=== PATIENT | male | born 1995 | race Two or more races ===

== ENCOUNTER 2024-07-29 17:58 | Emergency (ER) | payer OTHER ==
[~2024-07-29] VITALS: Ht 172.7 cm; Wt 95.4 kg
[2024-07-29 18:03] VITALS: TEMP 98.2
[2024-07-29 18:30] VITALS: BP 152/103; PULSE 97; RESP 16; O2SAT 98
--- NOTE | 2024-07-29 18:31 | Physician Documentation ---
History of Present Illness ~ Chief Complaint: Hypertension Stated Complaint: HTN Time Seen by MD: 18:27 HPI Patient is seen today for med clearance for hypertension as patient is brought here by ambulance from a nearby psych facility. Patient denies any current chest pain or shortness of breath or abdominal pain nausea, vomiting, diarrhea. Patient has no new or other concerns or complaints at this time. Medication Reconciliation Allergies: Coded Allergies: No Known Allergies (Unverified , 07/29/24) Review of Systems Constitutional: Denies: chills, fever, weakness Eyes: Denies: pain, blurred vision ENT: Denies: ear pain, nose pain, throat pain, mouth pain Respiratory: Denies: cough, shortness of breath Cardiovascular: Denies: chest pain, palpitations Gastrointestinal: Denies: abdominal pain, nausea, vomiting Genitourinary: Denies: burning, dysuria Male Genitalia: Denies: penile discharge, testicular pain Neurological: Denies: headache, dizziness Musculoskeletal: Denies: pain, swelling Integumentary: Denies: rash, lesions Allergic/Immunologic: Denies: hives, itching Hematologic/Lymphatic: Denies: no symptoms reported Psychiatric: Denies: depression, anxiety Physical Exam Vital Signs: Temperature: 98.2, Heart Rate: 98, Respiratory Rate: 19, BP: 165/105, Pulse Oximetry: 98, Weight: 95.400 Physical Exam General: Awake and Alert, no acute distress. HEENT: Conjunctiva pink, Sclera clear, Mucus Membranes moist. Neck: Supple without masses and tenderness. Resp: Unlabored. Lungs clear to auscultation bilaterally. Heart: Regular Rate and rhythm, normal S1 and S2 without murmur, rub or gallop. Abdomen: Soft and non tender no organomegaly Extremities: No cyanosis,clubbing or edema. Skin: Warm and Dry. Progress Results/Orders Results/Orders Orders - KIMBERLY DALY PAC Chest,Two Views (07/29/24 18:30) Completed Orders - KIMBERLY DLAY PAC Cbc/Diff (07/29/24 18:30) Chest,Two Views (07/29/24 18:30) Electrocardiogram (07/29/24 18:30) BMP (07/29/24 18:30) Clonidine Tablet (Catapres Tablet) (07/29/24 18:30) Ua W/Microscopic, Cult If Ind (07/29/24 18:46) Clonidine Tablet (Catapres Tablet) (07/29/24 19:33) Medications Received in ER Medications (Trade) Dose Ordered Sig/Claudio Route PRN Reason Start Time Stop Time Status Last Admin Dose Admin (Catapres tablet) 0.1 mg ONCE STAT PO 07/29/24 18:30 07/29/24 18:32 DC 07/29/24 18:49 0.1 MG Vital Signs 07/29/24 07/29/24 07/29/24 07/29/24 18:03 18:12 18:30 18:30 Temp 98.2 Pulse 98 98 97 Resp 19 16 B/P (MAP) 164/97 165/105 (125) 152/103 (119) Pulse Ox 98 98 O2 Flow Rate 0 Laboratory Tests Test 07/29/24 18:46 07/29/24 18:54 Urine Specimen Description Cln catch midstream Urine Color Yellow Urine Clarity Clear Urine pH 6.0 Urine Specific [place] 1.025 Urine Protein 30 H Urine Glucose (UA) Negative Urine Ketones 15 H Urine Occult Blood Negative Urine Nitrite Negative Urine Bilirubin Small Urine Urobilinogen 0.2 Urine Leukocyte Esterase Negative Urine RBC None seen Urine WBC 0-4 Urine Squamous Epithelial Cells Few Urine Bacteria 1+ Urine Mucus Moderate Urine Culture Indicated Not ind Volume Urine Centrifuged 10 ml Urine Comment White Blood Count 7.3 Red Blood Count 5.47 Hemoglobin 17.0 Hematocrit 49.2 Mean Corpuscular Volume 90.0 Mean Corpuscular Hemoglobin 31.0 Mean Corpuscular Hemoglobin Concent 34.5 Red Cell Distribution Width 13.3 Platelet Count 261 Mean Platelet Volume 8.0 Neutrophils (%) (Auto) 65.2 Lymphocytes (%) (Auto) 20.5 L Monocytes (%) (Auto) 11.7 Eosinophils (%) (Auto) 2.1 Basophils (%) (Auto) 0.5 Neutrophils # (Auto) 4.8 Lymphocytes # (Auto) 1.5 Monocytes # (Auto) 0.9 Eosinophils # (Auto) 0.2 Basophils # (Auto) 0.0 CBC Comment Sodium Level 143 Potassium Level 4.0 Chloride Level 104 Carbon Dioxide Level 26.4 Anion Gap 13 Blood Urea Nitrogen 22 H Creatinine 0.97 Estimated GFR/1.73 m2 > 90 BUN/Creatinine Ratio 22.7 H Glucose Level 102 Calcium Level 9.4 Albumin 4.5 Chemistry Comments EKG/XRAY/CT/US/VASC/MRI EKG : Additional Comment EKG interpreted by myself today shows normal sinus rhythm, normal rate at 96 beats per minute, no sign of ST segment elevation or ischemia, no axis deviation. Chest X-Ray : Additional Comments Chest x-ray interpreted by myself today shows no sign of large effusion, no large infiltrate, normal mediastinum. DIAGNOSTIC RADIOLOGY Patient: ROBB PINEDA Medical Record: [id number] [facility] : 1995, Age: 28 Sex: Male Location: ER Patient Status: [facility] ER Service Date/Time: 07/29/241829 Ordering Physician: KIMBERLY DALY PAC Exam: CHEST,TWO VIEWS Clinical History CHEST PAIN Comparison None Without Contrast ROBB PINEDA, [id number] Technique: Frontal and lateral chest x-ray Findings: The lungs are unremarkable. No pleural abnormality. The cardiomediastinal silhouette is unremarkable for an AP view. No acute osseous abnormality. The imaged part of the upper abdomen is unremarkable. Impression: No evidence of acute cardiopulmonary disease This report was electronically signed by Ashley Marshall MD on 07/29/2024 6:58:59 PM. Electronically Signed by:ASHLEY MARSHALL MD Date & Time: 07/29/241901 Dictated by: ASHLEY MARSHALL MD Dictation date and time: 07/29/241901 Primary Care Provider: NO PRIMARY CARE PROVIDER cc: KIMBERLY DALY PAC ~ Medical Decision Making Findings Patient is seen today for med clearance for hypertension as patient is brought here by ambulance from a nearby psych facility. Patient denies any current chest pain or shortness of breath or abdominal pain nausea, vomiting, diarrhea. Patient has no new or other concerns or complaints at this time. Patient's labs and EKG and chest x-ray are all unremarkable. Patient is medically cleared to enter psych facility [facility]. Patient will return to ED with any worsening, concerning or changing symptoms. Patient was administered clonidine 0.1 mg tablets x2 and patient's blood pressure did improve over his state to a more reasonable level. Departure Disposition: [facility] Impression: Primary Impression: Benign hypertension Condition: Improved Discharge Instructions: Hypertension, Adult Additional Instructions: Patient's labs and EKG and chest x-ray are all unremarkable. Patient is medically cleared to enter psych facility [facility]. Patient will return to ED with any worsening, concerning or changing symptoms. Patient was administered clonidine 0.1 mg tablets x2 and patient's blood pressure did improve over his state to a more reasonable level. Referrals: NO PRIMARY CARE PROVIDER (PCP) Signature Scribe Signature: No scribe Attestation: No scribe KIMBERLY DALY PAC July 29, 2024 18:31
[2024-07-29] MEDS: cloNIDine 0.1 mg tablet PO STA ×2 (18:49→19:46)
--- NOTE | 2024-07-29 18:50 | ELECTROCARDIOGRAPH REPORT ---
[facility] Test Date: 2024-07-29 Test Time: 18:47:31 Pat Name: ROBB PINEDA Department: EMERGENCY ROOM Room: Gender: M [employer]: : 1995 Requested By: KIMBERLY DALY Order Number: [id number] Reading MD: Measurements Intervals [place] Rate: 96 P: 76 AL: 126 QRS: 76 QRSD: 92 T: 39 QT: 348 QTc: 440 Interpretive Statements Sinus rhythm Baseline wander in lead(s) V1 Please click the below link to view image of tracing.
[2024-07-29 19:02] LABS: BILIRUBIN,URINE SMALL (Neg); CLARITY,URINE CLEAR (Clear); COLOR,URINE YELLOW (Yellow); GLUCOSE, URINE NEGATIVE (Neg); KETONES,URINE 15 mg/dl (Neg); LEUKOCYTE ESTERASE ,URINE NEGATIVE (Neg); NITRITES, URINE NEGATIVE (Neg); OCCULT BLOOD,URINE NEGATIVE (Neg); PROTEIN,URINE 30 mg/dl (Neg); UROBILINOGEN,URINE 0.2 E.U/dL (0.2-1.0)
--- NOTE | 2024-07-29 19:02 | RADIOLOGY REPORT ---
Clinical History CHEST PAIN Comparison None Without Contrast ROBB PINEDA, [id number] Technique: Frontal and lateral chest x-ray Findings: The lungs are unremarkable. No pleural abnormality. The cardiomediastinal silhouette is unremarkable for an AP view. No acute osseous abnormality. The imaged part of the upper abdomen is unremarkable. Impression: No evidence of acute cardiopulmonary disease This report was electronically signed by Ashley Benson MD on 07/29/2024 6:58:59 PM.
[2024-07-29 19:06] LABS: UA COLLECTION TYPE CLN CATCH MIDSTREAM
[2024-07-29 19:11] LABS: BASOPHILS % (AUTO) 0.5 % (0-1); EOSINOPHILS # (AUTO) 0.2 X10'3 (0-0.9); EOSINOPHILS % (AUTO) 2.1 % (0-6); HEMATOCRIT 49.2 % (42.0-52.0); LYMPHOCYTES # (AUTO) 1.5 X10'3 (1.1-4.8); LYMPHOCYTES % (AUTO) 20.5 % (21-51); MEAN CORPUSCULAR HGB CONC 34.5 g/dL (33.0-36.5); MONOCYTES # (AUTO) 0.9 X10'3 (0-0.9); MONOCYTES % (AUTO) 11.7 % (2-12); NEUTROPHILS # (AUTO) 4.8 X10'3 (1.8-7.7); NEUTROPHILS % (AUTO) 65.2 % (42-75); PLATELET COUNT 261 X10'3 (140-440); RED BLOOD COUNT 5.47 X10'6 (4.70-6.10); RED CELL DISTRIBUTION WIDTH 13.3 % (11.5-14.5); WHITE BLOOD COUNT 7.3 X10'3 (4.5-11.0)
[2024-07-29 19:14] LABS: ALBUMIN 4.5 G/DL (3.4-5.0); ANION GAP 13 (8-16); BLOOD UREA NITROGEN 22 MG/DL (7-18); BUN/CREATININE RATIO 22.7 (10.0-20.0); CALCIUM 9.4 MG/DL (8.5-10.1); CHLORIDE 104 MMOL/L (99-107); CREATININE 0.97 MG/DL (0.60-1.10); GLUCOSE 102 MG/DL (70-104); SODIUM 143 MMOL/L (135-145); TOTAL CARBON DIOXIDE 26.4 MMOL/L (24-32); eCRCL 111 ML/MIN; eGFR > 90 ML/MIN
[2024-07-29 19:30] LABS: WBC,URINE 0-4 /HPF (0-4)
[2024-07-29 19:31] LABS: BACTERIA,URINE 1+ /HPF (Neg); MUCUS STRANDS MODERATE /LPF (Neg); RBC,URINE NONE SEEN /HPF (0-2); SQUAMOUS EPITHELIAL CELL,UR FEW /LPF (FEW)
== END 2024-07-30 04:07 ==
LOC: ER 18:00
DX: I10 Essential (primary) hypertension (principal)
CPT/HCPCS: 36415; 71046; 80048; 81001; 85025; 93005; 99285